=== PATIENT | female | born 1960 | race Caucasian/White ===

== ENCOUNTER 2020-01-31 12:29 | Emergency (ER) | payer BC, OTHER ==
[~2020-01-31] VITALS: Ht 157 cm; Wt 75.5 kg
[2020-01-31 12:54] LABS: HEMOGLOBIN 13.5 G/DL (11.5-16.0); MEAN CORPUSCULAR HEMOGLOBIN 28 PG (25-34); WHITE BLOOD COUNT 11.2 10^3/uL (4.3-11.0)
--- NOTE | 2020-01-31 12:54 | ED Chest Pain ---
General Chief Complaint: Chest Pain Stated Complaint: CHEST PAIN Source: patient Exam Limitations: no limitations History of Present Illness Date Seen by Provider: Jan 31, 2020 Time Seen by Provider: 12:40 Initial Comments The patient is a 59-year-old female who presents for evaluation of left upper back discomfort. She states that yesterday she was taking trash to the dump and unloaded an entire truck fall. When she started doing this she had no discomfort but near the end had some soreness in the upper back. Today the soreness is worse. She denies shortness of breath, nausea or vomiting, diaphoresis, dizziness, abdominal pain, pain with inspiration, or syncope. She states that movement of the left arm and palpation of the area does make the pain worse and reproduces her pain. She was seen at an urgent care who recommended coming to the emergency department to rule out any possible cardiac cause. She is alert and oriented 4, calm, and appears to be in no distress at this time. Timing/Duration: 1-2 days Severity/Quality: moderate Location: back (left upper) Radiation: no radiation Modifying Factors: improves with movement (makes it worse) ASA po MATERIAL LOADER: Yes NTG SL MATERIAL LOADER: No Associated Symptoms: denies symptoms Allergies and Home Medications Allergies Coded Allergies: LIBIA Inhibitors (Verified Allergy, Unknown, cough, 01/31/20) Penicillins (Unverified Allergy, Unknown, throat swelling , 01/31/20) simvastatin (Verified Allergy, Unknown, muscle pain , 01/31/20) sulfamethoxazole (Verified Allergy, Unknown, itching, 01/31/20) trimethoprim (Verified Allergy, Unknown, itching, 01/31/20) codeine (Unverified Adverse Reaction, Unknown, nausea/vomiting, 01/31/20) Patient Home Medication List Home Medication List Reviewed: Yes Review of Systems Review of Systems Constitutional: no symptoms reported EENTM: No Symptoms Reported Respiratory: No Symptoms Reported Cardiovascular: No Symptoms Reported Gastrointestinal: No Symptoms Reported Genitourinary: No Symptoms Reported Musculoskeletal: back pain (left upper back/shoulder) Skin: no symptoms reported Psychiatric/Neurological: No Symptoms Reported Endocrine: No Symptoms Reported Hematologic/Lymphatic: No Symptoms Reported All Other Systems Reviewed Negative Unless Noted: Yes Past Nzdqntw-Yczfaq-Bfedso Hx Past Med/Social Hx: Reviewed Nursing Past Med/Soc Hx Patient Social History Recent Foreign Travel: Yes Physical Exam Vital Signs Vital Signs - First Documented 01/31/20 12:45 Temp 36.4 Pulse 75 Resp 16 B/P (MAP) 170/80 (110) Pulse Ox 97 Capillary Refill : Height, Weight, BMI Height: '" Weight: lbs. oz. kg; BMI Method: General Appearance: No Apparent Distress, WD/WN HEENT: PERRL/EOMI, Pharynx Normal Neck: Full Range of Motion, Non Tender, Supple Respiratory: Chest Non Tender, Normal Breath Sounds, No Accessory Muscle Use, No Respiratory Distress Cardiovascular: Regular Rate, Rhythm, No Edema, No JVD Gastrointestinal: Normal Bowel Sounds, No Pulsatile Mass, Non Tender, Soft Extremity: Normal Capillary Refill, Normal Inspection, Normal Range of Motion, Non Tender, No Calf Tenderness, Other (left upper scalpula-region ttp, left upper shoulder ttp, appears atraumatic, no dislocation/deformity) Neurologic/Psychiatric: Alert, Oriented x3, No Motor/Sensory Deficits, Normal Mood/Affect Skin: Normal Color, Warm/Dry Progress/Results/Core Measures Results/Orders Lab Results Laboratory Tests Test 01/31/20 12:40 Range/Units White Blood Count 11.2 H 4.3-11.0 10^3/uL Red Blood Count 4.76 4.35-5.85 10^6/uL Hemoglobin 13.5 11.5-16.0 G/DL Hematocrit 41 35-52 % Mean Corpuscular Volume 87 80-99 FL Mean Corpuscular Hemoglobin 28 25-34 PG Mean Corpuscular Hemoglobin Concent 33 32-36 G/DL Red Cell Distribution Width 13.2 10.0-14.5 % Platelet Count 340 130-400 10^3/uL Mean Platelet Volume 9.3 7.4-10.4 FL Neutrophils (%) (Auto) 51 42-75 % Lymphocytes (%) (Auto) 34 12-44 % Monocytes (%) (Auto) 10 0-12 % Eosinophils (%) (Auto) 4 0-10 % Basophils (%) (Auto) 1 0-10 % Neutrophils # (Auto) 5.8 1.8-7.8 X 10^3 Lymphocytes # (Auto) 3.8 1.0-4.0 X 10^3 Monocytes # (Auto) 1.1 H 0.0-1.0 X 10^3 Eosinophils # (Auto) 0.4 H 0.0-0.3 10^3/uL Basophils # (Auto) 0.1 0.0-0.1 10^3/uL Sodium Level 143 135-145 MMOL/L Potassium Level 4.1 3.6-5.0 MMOL/L Chloride Level 103 98-107 MMOL/L Carbon Dioxide Level 26 21-32 MMOL/L Anion Gap 14 5-14 MMOL/L Blood Urea Nitrogen 18 7-18 MG/DL Creatinine 0.85 0.60-1.30 MG/DL Estimat Glomerular Filtration Rate > 60 BUN/Creatinine Ratio 21 Glucose Level 84 70-105 MG/DL Calcium Level 9.9 8.5-10.1 MG/DL Corrected Calcium 9.6 8.5-10.1 MG/DL Magnesium Level 1.9 1.6-2.4 MG/DL Total Bilirubin 0.3 0.1-1.0 MG/DL Aspartate Amino Transf (AST/SGOT) 22 5-34 U/L Alanine Aminotransferase (ALT/SGPT) 21 0-55 U/L Alkaline Phosphatase 104 40-136 U/L Troponin I < 0.30 <0.30 NG/ML Pro-B-Type Natriuretic Peptide 184.7 H <75.0 PG/ML Total Protein 7.7 6.4-8.2 GM/DL Albumin 4.4 3.2-4.5 GM/DL My Orders Orders - YULIET CARTWRIGHT DO Ekg Tracing (01/31/20 12:32) Cbc With Automated Diff (01/31/20 12:38) Magnesium (01/31/20 12:38) Chest 1 View Ap/Pa Only (01/31/20 12:38) Comprehensive Metabolic Panel (01/31/20 12:38) O2 (01/31/20 12:38) Monitor-Rhythm Ecg Trace Only (01/31/20 12:38) Ed Iv/Invasive Line Start (01/31/20 12:38) Troponin I Fs (01/31/20 12:38) Probnp Fs (01/31/20 12:38) Vital Signs/I&O 01/31/20 12:45 Temp 36.4 Pulse 75 Resp 16 B/P (MAP) 170/80 (110) Pulse Ox 97 Progress Progress Note : Progress Note @1400 - patient updated on lab and imaging results. Workup today fails reveal any emergent pathology and the patient is stable for discharge. The most likely etiology of the patient's symptoms is a muscular skeletal strain or similar injury from all of the unloading she did just before her symptoms began. Advise close follow-up with her PCP in the next 2-3 days and return to the Emergency Department immediately for new or worsening symptoms. The patient expresses verbal understanding and agreement with the plan and is stable for discharge. Comment @1229 - Normal sinus rhythm, rate of 87, a left axis deviation, no acute ischemic findings noted, no STEMI, reviewed and interpreted by myself Diagnostic Imaging Diagonstic Imaging: Xray Comments [facility], [place] NAME: CIARA HUYNH MED REC#: [id number] PT STATUS: REG ER : 1960 PHYSICIAN: YULIET CARTWRIGHT DO ADMIT DATE: 01/31/20/ER FS Signed Date of Exam:01/31/20 CHEST 1 VIEW AP/PA ONLY Indication: Chest pain Portable chest 12:50 PM Heart size and pulmonary vascularity are normal. Lungs are clear. There are no effusions or pneumothoraces. IMPRESSION: Negative chest Dictated by: Dictated on workstation # [id number] Dict: 01/31/20 1256 Trans: 01/31/20 1257 [id number] Interpreted by: KENROY GARCIA MD Electronically signed by: KENROY GARCIA MD 01/31/20 1257 Departure Impression Primary Impression: Upper back pain on left side Disposition: 01 HOME, SELF-CARE Condition: Stable Departure-Patient Inst. Referrals: [facility] [place] Instructions: Lumbar Muscle Strain (DC), Upper Back Pain Add. Discharge Instructions: Follow-up with your doctor in the next 1-2 days. Return to the Emergency Department immediately for new or worsening symptoms. Take ibuprofen or Tylenol home for pain relief. Work/School Note: Work Release Form Date Seen in the Emergency Department: Jan 31, 2020 Return to Work: Jan 31, 2020 Restrictions: No Restrictions YULIET CARTWRIGHT DO Jan 31, 2020 12:54
[2020-01-31 12:55] LABS: BASOPHILS % (AUTO) 1 % (0-10); EOSINOPHILS % (AUTO) 4 % (0-10); HEMATOCRIT 41 % (35-52); MEAN CORPUSCULAR HGB CONC 33 G/DL (32-36); MEAN CORPUSCULAR VOLUME 87 FL (80-99); MEAN PLATELET VOLUME 9.3 FL (7.4-10.4); MONOCYTES % (AUTO) 10 % (0-12); NEUTROPHILS % (AUTO) 51 % (42-75); PLATELET COUNT 340 10^3/uL (130-400); RED CELL DISTRIBUTION WIDTH 13.2 % (10.0-14.5)
[2020-01-31 12:56] LABS: EOSINOPHILS # (AUTO) 0.4 10^3/uL (0.0-0.3); LYMPHOCYTES # (AUTO) 3.8 X 10^3 (1.0-4.0); LYMPHOCYTES % (AUTO) 34 % (12-44); MONOCYTES # (AUTO) 1.1 X 10^3 (0.0-1.0); NEUTROPHILS # (AUTO) 5.8 X 10^3 (1.8-7.8)
[2020-01-31 12:57] LABS: BASOPHILS # (AUTO) 0.1 10^3/uL (0.0-0.1)
--- NOTE | 2020-01-31 12:58 | Diagnostic Imaging Report ---
Indication: Chest pain Portable chest 12:50 PM Heart size and pulmonary vascularity are normal. Lungs are clear. There are no effusions or pneumothoraces. IMPRESSION: Negative chest Dictated by: Dictated on workstation # [id number]
[2020-01-31 13:10] LABS: CHLORIDE 103 MMOL/L (98-107); POTASSIUM 4.1 MMOL/L (3.6-5.0); SODIUM 143 MMOL/L (135-145)
[2020-01-31 13:11] LABS: ALANINE AMINOTRANSFERASE 21 U/L (0-55); ALBUMIN 4.4 GM/DL (3.2-4.5); ALKALINE PHOSPHATASE 104 U/L (40-136); BILIRUBIN,TOTAL 0.3 MG/DL (0.1-1.0); BUN/CREATININE RATIO 21; CALCIUM 9.9 MG/DL (8.5-10.1); CARBON DIOXIDE 26 MMOL/L (21-32); CREATININE SERUM 0.85 MG/DL (0.60-1.30); GFR ESTIMATED > 60; GLUCOSE 84 MG/DL (70-105); MAGNESIUM 1.9 MG/DL (1.6-2.4); TOTAL PROTEIN 7.7 GM/DL (6.4-8.2)
[2020-01-31 14:35] VITALS: BP 145/78
--- OUTSIDE RECORDS SUMMARY | 2020-02-02 22:08 | XMS REPORT ---
Author Author Francheska FRY Organization [facility] Address [address] [place] [address] Care Team Providers Care Hired Help Name Role Phone JODIE FRY Unavailable PROBLEMS Type Condition ICD9-CM Code [id number] Code Onset Dates Condition S tatus SNOMED Code Problem Tibialis posterior tendonitis M76.829 Dec, 0 42793312 Problem Tibialis posterior tendonitis 726.72 Dec, 0 65474119 Problem Status post colonoscopy with polypectomy Z98.890 March, 0 706725703 Problem Status post colonoscopy with polypectomy V45.89 March, 0 42966632 Problem Tubular adenoma of colon D12.6 March, 0 694708259 Problem Cheilitis K13.0 Aug, 0 8041497 Problem Hypertension I10 Nov, 0 3834 1003 Problem Tubular adenoma of colon 211.3 March, 0 385558827 Problem Hyperlipidemia 272.4 Nov, 0 55 234888 Problem Liver cyst K76.89 Active 47321518 Problem Cheilitis 528.5 Aug, 0 9846648 Problem Polycystic kidney disease Q61.3 Acti ve 66314087 Problem Hyperlipidemia E78.5 Nov, 0 55 027525 Problem Hypertension 401.9 Nov, 0 3834 1003 Problem Gastroesophageal reflux disease without esophagitis K21.9 Active 380932399 Problem Arthritis of back M47.9 Active 37 3884443 Problem Generalized anxiety disorder F41.1 A ctive [id number] ALLERGIES Substance Reaction Event Type Date Status Penicillamine Unknown Drug Allergy Jan, Active Codeine Sulfate Unknown Drug Allergy Jan, Active ENCOUNTERS Encounter Location Date Diagnosis [facility] [address] [place] [id number] Jun Polycystic kidney disease Q61.3 [facility] [address] [place] [phone] May Polycystic kidney disease Q61.3 [facility] [address] [place] [phone] Feb Low grade squamous intraepithelial lesion on cytologic smear of cervix (LGSIL) R87.[address] [address] Jan, Screening mammogram, encounter for Z12.3 [address] [place] [address] [place] [phone] [address] Jan Well female exam with routine gynecological exam Z01.[address] [address] Jan Polycystic kidney disease Q61.3 ; 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 11 ; Nausea R11.0 ; Gastroesophageal reflux disease without esophagitis K21.9 ; Generalized anxiety disorder F41.1 and Arthritis of back M47.[address] [address] Jan Right upper quadrant abdominal pain R10.11 ; Nausea R11.0 ; Gastroesophageal reflux disease without esophagitis K21.9 ; Generalized anxiety disorder F41.1 and Arthritis of back M47.9 [facility] [address] [facility] [id number] [address] [place] [phone] Oct, [facility] [address] [facility] [id number] [address] [place] [phone] May, [facility] [address] [facility] [id number] [address] [place] [phone] Dec, [facility] [address] [place] [id number] [address] [place] [phone] Feb, IMMUNIZATIONS No Known Immunizations SOCIAL HISTORY Never Assessed REASON FOR VISIT Annual physical (female) w/ pap. Mammo next week. OCTAVIO Nelson PLAN OF CARE VITAL SIGNS Height 62 in 2019-02-09 Weight 159.8 lbs 2019-02-09 Temperature 97.6 degrees Fahrenheit 2019-02-09 Heart Rate 76 bpm 2019-02-09 Respiratory Rate 16 2019-02-09 BMI 29.22 kg/m2 2019-02-09 Blood pressure systolic 150 mmHg 2019-02-09 Blood pressure diastolic 86 mmHg 2019-02-09 MEDICATIONS Medication Instructions Dosage Frequency Start Date End Date Duration S tatus Spironolactone 25 MG 30 Act rafat Fish Oil Active Lansoprazole 15 MG 30 Activ e Multivitamin Active Tramadol HCl 50 MG Oral 2 times a day 1 tablet as needed 12h 28 days Active Fenofibric Acid 135 MG 90 A ctive Atorvastatin Calcium 40 MG 90 Active Alprazolam 0.5 MG Oral Once a day 1 tablet and prn 24h 30 days Active Candesartan Cilexetil 16 MG 30 Active Metoprolol Succinate ER 50 MG 90 Active Aspirin 325 MG Orally Once a day 1 tablet 24h 30 day (s) Active RESULTS No Results PROCEDURES Procedure Date Ordered Result Body Site SPECIMEN HANDLING February 09, 2019 INSTRUCTIONS MEDICATIONS ADMINISTERED No Known Medications MEDICAL (GENERAL) HISTORY Type Description Date Medical History hypertension Medical History hyperlipidemia Medical History cardiomyopathy Surgical History tubal ligation
--- OUTSIDE RECORDS SUMMARY | 2020-02-02 22:08 | XMS REPORT ---
Author Francheska Brown Organization [facility] Address [address] [place] [address] Care Team Providers Care County Auditor Name Role Phone Raven George Unavailable PROBLEMS Type Condition ICD9-CM Code [id number] Code Onset Dates Condition S tatus SNOMED Code Problem Essential hypertension I10 Active [id number] ALLERGIES Substance Reaction Event Type Date Status Codine Nausea Non Drug Allergy Jul, Active Penicillins Throat swelling Non Drug Allergy Jul, Active SOCIAL HISTORY Never Assessed PLAN OF CARE Activity Details Follow Up 3 Months, prn Reason: VITAL SIGNS Heart Rate 100 /min 2017-08-12 Respiratory Rate 16 /min 2017-08-12 Temperature 98 degrees Fahrenheit 2017-08-12 Oximetry 97 % 2017-08-12 BMI 26.47 kg/m2 2017-08-12 Height 63.75 in 2017-08-12 Weight 153 lbs 2017-08-12 Blood pressure systolic 126 mm Hg 2017-08-12 Blood pressure diastolic 78 mm Hg 2017-08-12 MEDICATIONS Medication Instructions Dosage Frequency Start Date End Date Duration S tatus Xanax 0.5 MG Orally Twice a day 1 tablet 12h Active Fish Oil 1000 MG Orally Once a day 1 capsule 24h Active Fenofibrate 134 MG Orally Once a day 1 capsule with a meal 24h Active Valsartan 160 MG Orally Once a day 1/2 tablet 24h Jul, Active Hydrocodone-Ibuprofen 10-200 MG Orally every 6 hrs 1 tablet as needed 6h Active Metoprolol-HCTZ ER 50-12.5 MG Orally Once a day 1 tablet 24h Active RESULTS No Results PROCEDURES No Known procedures IMMUNIZATIONS No Known Immunizations MEDICAL (GENERAL) HISTORY Type Description Date Medical History Mild cardio myopthy Medical History RA Lumbar Medical History PTSD Medical History Hypertension Surgical History Tubal ligation 1982 Surgical History Tubal ligtion reversal 1991
--- OUTSIDE RECORDS SUMMARY | 2020-02-02 22:08 | XMS REPORT | Continuity of Care Document ---
Author Organization Unknown Address Unknown Phone Unavailable Allergies Active Description Code Type Severity Reaction Onset Reported/Identified Relationship to Patient Clinical Status Yes LIBIA Inhibitors [id number] Dr ug Allergy Unknown cough 01/31/2020 Yes codeine [id number] Drug Allergy Unknown nausea/vomiting 01/31/2020 Yes Penicillins [id number] Drug Aller gy Unknown throat swelling 01/31/2020 Yes simvastatin [id number] Drug Aller gy Unknown muscle pain 01/31/2020 Yes sulfamethoxazole [id number] Drug Allergy Unknown itching 01/31/2020 Yes trimethoprim [id number] Drug Allergy Unknown itching 01/31/2020 Medications There is no data. Problems There is no data. Procedures There is no data. Results Test Result Range LIPASE - 01/27/19 13:48 LIPASE 44 U/L 7-60 AMYLASE - 01/27/19 13:48 AMYLASE 39 U/L 21-101 SUREPATH PAP RFX HPV mRNA E6/E7 - 10:40 CLINICAL INFORMATION: NRG LMP: UNKNOWN NRG PREV. PAP: NRG PREV. BX: N/A NRG SOURCE: NRG STATEMENT OF ADEQUACY: NRG INTERPRETATION/RESULT: NRG HAND HEEL SEAT FITTER: NRG GENERAL CATEGORIZATION: NRG COMMENT: NRG PATHOLOGIST: NRG COMMENT NRG PATHOLOGY REPORT (TISSUE PAHOLOGY) - 02/09 13:28 A SOURCE NRG A GROSS DESCRIPTION NRG A DIAGNOSIS NRG CLINICAL INFORMATION NRG PATHOLOGIST NRG CBC - 06/25/19 11:03 WHITE BLOOD CELL COUNT 8.3 Thousand/uL 3 .8-10.8 RED BLOOD CELL COUNT 4.54 Million/uL 3.8 0-5.10 HEMOGLOBIN 12.5 g/dL 11.7-15.5 HEMATOCRIT 39.2 % 35.0-45.0 MCV 86.3 fL 80.0-100.0 MCH 27.5 pg 27.0-33.0 MCHC 31.9 g/dL 32.0-36.0 RDW 13.0 % 11.0-15.0 PLATELET COUNT 276 Thousand/uL 140-400 MPV 10.3 fL 7.5-12.5 ABSOLUTE NEUTROPHILS 4150 cells/uL 1500- 7800 ABSOLUTE LYMPHOCYTES 3013 cells/uL 850-3 900 ABSOLUTE MONOCYTES 614 cells/uL 200-950 ABSOLUTE EOSINOPHILS 432 cells/uL 15-500 ABSOLUTE BASOPHILS 91 cells/uL 0-200 NEUTROPHILS 50 % NRG LYMPHOCYTES 36.3 % NRG MONOCYTES 7.4 % NRG EOSINOPHILS 5.2 % NRG BASOPHILS 1.1 % NRG UA W/ MICROSCOPY - 06/25/19 11:03 COLOR YELLOW YELLOW APPEARANCE CLEAR CLEAR SPECIFIC GRAVITY 1.019 1.001-1.035 PH 6.0 5.0-8.0 GLUCOSE NEGATIVE NEGATIVE BILIRUBIN NEGATIVE NEGATIVE KETONES NEGATIVE NEGATIVE OCCULT BLOOD TRACE NEGATIVE PROTEIN NEGATIVE NEGATIVE NITRITE POSITIVE NEGATIVE LEUKOCYTE ESTERASE 1+ NEGATIVE WBC 6-10 /HPF < OR = 5 RBC 0-2 /HPF < OR = 2 SQUAMOUS EPITHELIAL CELLS 0-5 /HPF < OR = 5 BACTERIA FEW /HPF NONE SEEN HYALINE CAST NONE SEEN /LPF NONE SEEN CBC w/MANUAL DIFF - 11/30/19 15:38 WHITE BLOOD CELL COUNT 9.7 Thousand/uL 3 .8-10.8 RED BLOOD CELL COUNT 4.53 Million/uL 3.8 0-5.10 HEMOGLOBIN 13.3 g/dL 11.7-15.5 HEMATOCRIT 39.2 % 35.0-45.0 MCV 86.5 fL 80.0-100.0 MCH 29.4 pg 27.0-33.0 MCHC 33.9 g/dL 32.0-36.0 RDW 13.0 % 11.0-15.0 PLATELET COUNT 302 Thousand/uL 140-400 MPV 10.7 fL 7.5-12.5 ABSOLUTE NEUTROPHILS 6169 cells/uL 1500- 7800 ABSOLUTE MONOCYTES 786 cells/uL 200-950 ABSOLUTE EOSINOPHILS 291 cells/uL 15-500 ABSOLUTE BASOPHILS 97 cells/uL 0-200 NEUTROPHILS 63.6 % NRG LYMPHOCYTES 24.3 % NRG MONOCYTES 8.1 % NRG EOSINOPHILS 3.0 % NRG BASOPHILS 1.0 % NRG ABSOLUTE LYMPHOCYTES 2357 cells/uL 850-3 900 PLATELET ESTIMATION ADEQUATE ADEQUATE COMMENT(S) NRG TSH - 11/30/19 15:38 TSH 1.65 mIU/L 0.40-4.50 Complete blood count (CBC) with automate d white blood cell (WBC) differential - 01/31/20 12:40 Blood leukocytes automated count (number/volume) 11.2 10*3/uL 4.3-11.0 Blood erythrocytes automated count (number/volume) 4.76 10*6/uL 4.35-5.85 Venous blood hemoglobin measurement (mass/volume) 13.5 g/dL 11.5-16.0 Blood hematocrit (volume fraction) 41 % 35-52 Automated erythrocyte mean corpuscular volume 87 [ foz_us] 80-99 Automated erythrocyte mean corpuscular h emoglobin (mass per erythrocyte) 28 pg 25-34 Automated erythrocyte mean corpuscular h emoglobin concentration measurement (mass/volume) 33 g/dL 32-36 Automated erythrocyte distribution width ratio 13. 2 % 10.0- 14.5 Automated blood platelet count (count/volume) 340 10*3/uL 130-400 Automated blood platelet mean volume measurement 9.3 [foz_us] 7.4-10.4 Automated blood neutrophils/100 leukocytes 51 % 42-75 Automated blood lymphocytes/100 leukocytes 34 % 12-44 Blood monocytes/100 leukocytes 10 % 0-12 Automated blood eosinophils/100 leukocytes 4 % 0-10 Automated blood basophils/100 leukocytes 1 % 0-10 Blood neutrophils automated count (number/volume) 5.8 10*3 1.8-7.8 Blood lymphocytes automated count (number/volume) 3.8 10*3 1.0-4.0 Blood monocytes automated count (number/volume) 1. 1 10*3 0.0-1.0 Automated eosinophil count 0.4 10*3/uL 0 .0-0.3 Automated blood basophil count (count/volume) 0.1 10*3/uL 0.0-0.1 Comprehensive metabolic panel - 01/31/20 12:40 Serum or plasma sodium measurement (moles/volume) 143 mmol/L 135-145 Serum or plasma potassium measurement (moles/volume) 4.1 mmol/L 3.6-5.0 Serum or plasma chloride measurement (moles/volume) 103 mmol/L 98-107 Carbon dioxide 26 mmol/L 21-32 Serum or plasma anion gap determination (moles/volume) 14 mmol/L 5-14 Serum or plasma urea nitrogen measurement (mass/volume ) 18 mg/dL 7-18 Serum or plasma creatinine measurement (mass/volume) 0.85 mg/dL 0.60-1.30 Serum or plasma urea nitrogen/creatinine mass ratio 21 NRG Serum or plasma creatinine measurement w ith calculation of estimated glomerular filtration rate > NRG Serum or plasma glucose measurement (mass/volume) 84 mg/dL 70-105 Serum or plasma calcium measurement (mass/volume) 9.9 mg/dL 8.5-10.1 Serum or plasma total bilirubin measurement (mass/volu me) 0.3 mg/dL 0.1-1.0 Serum or plasma alkaline phosphatase glenn surement (enzymatic activity/volume) 104 U/L 40-136 Serum or plasma aspartate aminotransfera se measurement (enzymatic activity/volume) 22 U/L 5-34 Serum or plasma alanine aminotransferase measurement (enzymatic activity/volume) 21 U/L 0-55 Serum or plasma protein measurement (mass/volume) 7.7 g/dL 6.4-8.2 Serum or plasma albumin measurement (mass/volume) 4.4 g/dL 3.2-4.5 CALCIUM CORRECTED 9.6 mg/dL 8.5-10.1 Magnesium - 01/31/20 12:40 Magnesium 1.9 mg/dL 1.6-2.4 TROPONIN I FS - 01/31/20 12:40 TROPONIN I FS < 0.30 <0.30 PROBNP FS - 01/31/20 12:40 PROBNP FS 184.7 pg/mL <75.0 Encounters ACCT No. Visit Date/Time Discharge Status Pt. Type Provider Facility Loc./Unit Complaint [id number] 10/14/2019 16:20:00 10/14/2019 23:59:5 9 [facility] Outpatient JODIE FRY [facility] [id number] 11/30/2019 15:40:00 Document Registration [id number] 06/25/2019 11:20:00 Document Registration [id number] 02/24/2019 13:00:00 Document Registration [id number] 02/09/2019 10:00:00 Document Registration [id number] 01/27/2019 13:20:00 Document Registration [id number] 01/31/2020 12:40:00 020 14:40:00 DIS Emergency CHAY HORVATH DO [facility] ER FS CHEST PAIN
--- OUTSIDE RECORDS SUMMARY | 2020-02-02 22:08 | XMS REPORT ---
Author Author Francheska FRY Organization [facility] Address [address] [place] [address] Care Team Providers Care Stoker Installation Mechanic Name Role Phone JODIE FRY Unavailable PROBLEMS Type Condition ICD9-CM Code DEL06-JT Code Onset Dates Condition S tatus SNOMED Code Problem Tibialis posterior tendonitis M76.829 Dec, 0 70261271 Problem Tibialis posterior tendonitis 726.72 Dec, 0 44025234 Problem Status post colonoscopy with polypectomy Z98.890 March, 0 221278099 Problem Status post colonoscopy with polypectomy V45.89 March, 0 30585715 Problem Tubular adenoma of colon D12.6 March, 0 531406762 Problem Cheilitis K13.0 Aug, 0 4710537 Problem Hypertension I10 Nov, 0 3834 1003 Problem Tubular adenoma of colon 211.3 March, 0 686077921 Problem Hyperlipidemia 272.4 Nov, 0 55 609832 Problem Liver cyst K76.89 Active 67313738 Problem Cheilitis 528.5 Aug, 0 2999987 Problem Polycystic kidney disease Q61.3 Acti ve 43914000 Problem Hyperlipidemia E78.5 Nov, 0 55 304081 Problem Hypertension 401.9 Nov, 0 3834 1003 Problem Gastroesophageal reflux disease without esophagitis K21.9 Active 834263180 Problem Arthritis of back M47.9 Active 37 2186405 Problem Generalized anxiety disorder F41.1 A ctive [id number] ALLERGIES Substance Reaction Event Type Date Status Penicillamine Unknown Drug Allergy Jan, Active Codeine Sulfate Unknown Drug Allergy Jan, Active ENCOUNTERS Encounter Location Date Diagnosis [facility] [address] [place] [address] Feb Low grade squamous intraepithelial lesion on cytologic smear of cervix (LGSIL) R87.612 [facility] [address] [place] [address] Jan, Screening mammogram, encounter for Z12.3 [address] [place] [address] [place] [address] Jan [place] [address] [place] [address] Jan Well female exam with routine gynecological exam Z01.419 [place] [address] [place] [address] Jan Polycystic kidney disease Q61.3 ; 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 11 ; Nausea R11.0 ; Gastroesophageal reflux disease without esophagitis K21.9 ; Generalized anxiety disorder F41.1 and Arthritis of back M47.9 [place] [address] [place] [address] Jan Right upper quadrant abdominal pain R10.11 ; Nausea R11.0 ; Gastroesophageal reflux disease without esophagitis K21.9 ; Generalized anxiety disorder F41.1 and Arthritis of back M47.9 [place] [address] [address] [facility] [id number] [address] [place] [address] Oct, [place] [address] [address] [facility] [id number] [address] [place] [phone] May, [place] [address] [address] [facility] [id number] [address] [place] [address] Dec, [place] [address] [address] [facility] [id number] [address] [place] [address] Feb, IMMUNIZATIONS No Known Immunizations SOCIAL HISTORY Never Assessed REASON FOR VISIT F/U US. OCTAVIO Nelson PLAN OF CARE VITAL SIGNS Height 62 in 2019-02-01 Weight 158 lbs 2019-02-01 Temperature 98.8 degrees Fahrenheit 2019-02-01 Heart Rate 86 bpm 2019-02-01 Respiratory Rate 16 2019-02-01 BMI 28.9 kg/m2 2019-02-01 Blood pressure systolic 122 mmHg 2019-02-01 Blood pressure diastolic 70 mmHg 2019-02-01 MEDICATIONS Medication Instructions Dosage Frequency Start Date End Date Duration S tatus Metoprolol Succinate ER 50 MG 90 Active Fish Oil Active Candesartan Cilexetil 16 MG 30 Active Tramadol HCl 50 MG Oral 2 times a day 1 tablet as needed 12h 28 days Active Atorvastatin Calcium 40 MG 90 Active Aspirin 325 MG Orally Once a day 1 tablet 24h 30 day (s) Active Spironolactone 25 MG 30 Act rafat Fenofibric Acid 135 MG 90 A ctive Lansoprazole 15 MG 30 Activ e Multivitamin Active Alprazolam 0.5 MG Oral Once a day 1 tablet and prn 24h 30 days Active RESULTS No Results PROCEDURES No Known procedures INSTRUCTIONS MEDICATIONS ADMINISTERED No Known Medications MEDICAL (GENERAL) HISTORY Type Description Date Medical History hypertension Medical History hyperlipidemia Medical History cardiomyopathy Surgical History tubal ligation
--- OUTSIDE RECORDS SUMMARY | 2020-02-02 22:08 | XMS REPORT ---
Author Author Francheska FRY Organization [facility] Address [address] [place] [address] Care Team Providers Care Litigation Partner Name Role Phone JODIE FRY Unavailable PROBLEMS Type Condition ICD9-CM Code [id number] Code Onset Dates Condition S tatus SNOMED Code Problem Tibialis posterior tendonitis M76.829 Dec, 0 06838519 Problem Tibialis posterior tendonitis 726.72 Dec, 0 12664272 Problem Status post colonoscopy with polypectomy Z98.890 March, 0 804455272 Problem Status post colonoscopy with polypectomy V45.89 March, 0 39777976 Problem Tubular adenoma of colon D12.6 March, 0 327171927 Problem Cheilitis K13.0 Aug, 0 5445579 Problem Hypertension I10 Nov, 0 3834 1003 Problem Tubular adenoma of colon 211.3 March, 0 472001587 Problem Hyperlipidemia 272.4 Nov, 0 55 973072 Problem Liver cyst K76.89 Active 53996501 Problem Cheilitis 528.5 Aug, 0 0748577 Problem Polycystic kidney disease Q61.3 Acti ve 09999981 Problem Hyperlipidemia E78.5 Nov, 0 55 145840 Problem Hypertension 401.9 Nov, 0 3834 1003 Problem Gastroesophageal reflux disease without esophagitis K21.9 Active 421076248 Problem Arthritis of back M47.9 Active 37 9576248 Problem Generalized anxiety disorder F41.1 A ctive 27780697 ALLERGIES No Information ENCOUNTERS Encounter Location Date Diagnosis [facility] [address] [place] [address] Feb Low grade squamous intraepithelial lesion on cytologic smear of cervix (LGSIL) R87.[address] [address] Jan, Screening mammogram, encounter for Z12.3 1 [facility] [address] [place] [address] Jan [place] [address] [place] [address] Jan Well female exam with routine gynecological exam Z01.419 [place] [address] [place] [address] 11 Jan Polycystic kidney disease Q61.3 ; 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 11 ; Nausea R11.0 ; Gastroesophageal reflux disease without esophagitis K21.9 ; Generalized anxiety disorder F41.1 and Arthritis of back M47.9 [place] [address] [place] [address] Jan Right upper quadrant abdominal pain R10.11 ; Nausea R11.0 ; Gastroesophageal reflux disease without esophagitis K21.9 ; Generalized anxiety disorder F41.1 and Arthritis of back M47.9 [place] [address] [address] [facility] [id number] [address] [place] [address] Oct, [place] [address] [address] [facility] [id number] [address] [place] [address] May, [place] [address] [address] [facility] [id number] [address] [place] [address] Dec, [place] [address] [address] [place] [id number] [address] [place] [address] Feb, IMMUNIZATIONS No Known Immunizations SOCIAL HISTORY Never Assessed REASON FOR VISIT ULTRASOUND, Humera Spear RDMS, RVT PLAN OF CARE VITAL SIGNS MEDICATIONS No Known Medications RESULTS Name Result Date Reference Range Ultrasound : ABDOMEN COMPLETE (IN-HOUSE) 2019-01 PROCEDURES Procedure Date Ordered Result Body Site US EXAM, ABDOM, COMPLETE January 29, 2019 INSTRUCTIONS MEDICATIONS ADMINISTERED No Known Medications MEDICAL (GENERAL) HISTORY Type Description Date Medical History hypertension Medical History hyperlipidemia Medical History cardiomyopathy Surgical History tubal ligation
--- OUTSIDE RECORDS SUMMARY | 2020-02-02 22:08 | XMS REPORT ---
Author Author Francheska FRY Organization [facility] Address [address] [place] [address] Care Team Providers Care Inspector Quality Assurance Name Role Phone JODIE FRY Unavailable PROBLEMS Type Condition ICD9-CM Code DIC37-NM Code Onset Dates Condition S tatus SNOMED Code Problem Hyperlipidemia 272.4 Nov, 0 55 509974 Problem Hypertension 401.9 Nov, 0 3834 1003 Problem Hypertension I10 Nov, 0 3834 1003 Problem Tubular adenoma of colon 211.3 March, 0 163778898 Problem Hyperlipidemia E78.5 Nov, 0 55 647488 Problem Cheilitis 528.5 Aug, 0 8870347 Problem Status post colonoscopy with polypectomy Z98.890 March, 0 619437816 Problem Status post colonoscopy with polypectomy V45.89 March, 0 77393746 Problem Tibialis posterior tendonitis M76.829 Dec, 17 0 09096256 Problem Polycystic kidney disease Q61.3 Acti ve 25645285 Problem Cheilitis K13.0 Aug, 0 1411462 Problem Liver cyst K76.89 Active 47015693 Problem Tubular adenoma of colon D12.6 March, 0 590247615 Problem Tibialis posterior tendonitis 726.72 Dec, 17 0 30989688 Problem Gastroesophageal reflux disease without esophagitis K21.9 Active 713102370 Problem Arthritis of back M47.9 Active 37 9097347 Problem Generalized anxiety disorder F41.1 A ctive 38465233 ALLERGIES No Information ENCOUNTERS Encounter Location Date Diagnosis [facility] [id number] [place] [address] Nov, [facility] [address] [place] [id number] [place] [address] Nov, [facility] [address] [id number] [address] Nov, [place] [address] [place] [address] Nov, Right upper quadrant abdominal pain R10.11 and Itching L29.9 [place] [address] [place], [place] [id number] [place] [address] Oct, [place] [address] [place] [address] Oct, [facility] [address] [place] [address] Sep, Acute otitis externa of righ t ear, unspecified type H60.501 ; Swelling of right ear H93.8X1 and Cellulitis of right ear H60.11 [place] [address] [place], [place] [id number] [place] [address] Jun, Polycystic kidney disease Q61.3 [place] [address] [place] [address] May, Polycystic kidney disease Q61.3 [place] [address] [place] [address] Feb, Low grade squamous intraepithelial lesion on cytologic smear of cervix (LGSIL) R87.[address] [place] [address] Jan, Screening mammogram, encount er for Z12.31 [place] [address] [place] [address] Jan, [place] [address] [place] [address] Jan, Well female exam with routine gynecological exam Z01.419 [place] [address] [place] [address] Jan, Polycystic kidney disease Q61.3 ; 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 ; Abdominal bloating R14.0 ; Screening for malignant neoplasm of breast Z12.31 and Liver cyst K76.89 [place] [address] [place] [id number] [address] Jan, [address] [place] [address] Jan, Right upper quadrant abdomin al pain R10.11 ; Nausea R11.0 ; Gastroesophageal reflux disease without esophagitis K21.9 ; Generalized anxiety disorder F41.1 and Arthritis of back M47.9 [facility] [address] [place] [id number] [address] Jan, Right upper quadrant abdominal pain R10.11 ; Nausea R11.0 ; Gastroesophageal reflux disease without esophagitis K21.9 ; Generalized anxiety disorder F41.1 and Arthritis of back M47.9 [place] [address] [address] [place] [id number] [place] [address] Oct, [place] [address] [place] [id number] [place] [address] May, [place] [address] [address] Dec, [place] [address] [address] Feb, IMMUNIZATIONS No Known Immunizations SOCIAL HISTORY Never Assessed REASON FOR VISIT mammo Andrzej Chaves M PLAN OF CARE VITAL SIGNS MEDICATIONS Unknown Medications RESULTS Name Result Date Reference Range MAMMOGRAM : SCREENING 3D, BILATERAL (IN HOUS) 09-02-26 PROCEDURES Procedure Date Ordered Result Body Site BREAST TOMOSYNTHESIS BI February 16, 2019 INSTRUCTIONS MEDICATIONS ADMINISTERED No Known Medications MEDICAL (GENERAL) HISTORY Type Description Date Medical History hypertension Medical History hyperlipidemia Medical History cardiomyopathy Surgical History tubal ligation
== END 2020-01-31 14:40 | disposition home or self-care (01) ==
LOC: EDUNIT# 12:29 → ER FS 12:40
DX: M54.6 Pain in thoracic spine (principal); Z88.8 Allergy status to other drugs, medicaments and biological substances; Z88.0 Allergy status to penicillin; Z88.5 Allergy status to narcotic agent; Z88.1 Allergy status to other antibiotic agents
CPT/HCPCS: 36415; 71045; 80053; 83735; 83880; 84484; 85025; 93041

== ENCOUNTER → 2020-03-28 | Outpatient (CLI) | payer BC ==
--- NOTE | 2020-03-28 20:21 | Diagnostic Imaging Report ---
INDICATION: Fell last night. Left-sided pain EXAMINATION: Left rib series dated 03/28/2020 FINDINGS: There are no displaced fractures. The visualized left lung is grossly unremarkable with no pneumothorax seen. IMPRESSION: 1. No acute process. Dictated by: Dictated on workstation # [id number]
== END ==
LOC: RAD FS 18:20
PROVIDERS: ATTEND Nurse Practitioner
DX: R07.81 Pleurodynia (principal); W19.XXXA Unspecified fall, initial encounter
CPT/HCPCS: 71100

== ENCOUNTER → 2021-05-04 | Outpatient (CLI) | payer SELFPAY ==
--- NOTE | 2021-05-04 15:05 | Diagnostic Imaging Report ---
INDICATION: High cholesterol and cardiomyopathy. EXAMINATION: CT calcium scoring study performed with noncontrast images of the chest in the region of the cardiac silhouette, with calcium scoring. FINDINGS: Visualized portions of the lung peralta show emphysematous changes but no focal infiltrate or nodule. There is no mediastinal or hilar adenopathy. There is no pleural or pericardial fluid. Visualized portions of the upper abdomen demonstrate numerous cysts in the liver. CT calcium score was 74.9 for the left main coronary, 0 for the LAD, and 6.4 for the circumflex coronary artery. The score was 528 for the right coronary artery. Total score was 609. IMPRESSION: 1. Cardiac calcium score was 609, compatible with extensive overall plaque burden. A large percentage of the overall plaque burden is in the right coronary artery. 2. There are underlying emphysematous changes as well as numerous cysts in the liver. Dictated by: Dictated on workstation # [id number]
== END ==
LOC: RAD FS 13:59
PROVIDERS: ATTEND Nurse Practitioner Family
DX: J43.9 Emphysema, unspecified (principal); I42.9 Cardiomyopathy, unspecified; E78.5 Hyperlipidemia, unspecified; R91.8 Other nonspecific abnormal finding of lung field
CPT/HCPCS: 75571